=== PATIENT | male | born 1935 | race Caucasian/White ===

== ENCOUNTER 2019-11-12 02:53 | Emergency (ER) | payer OTHER ==
[~2019-11-12] VITALS: Ht 175.3 cm; Wt 81.6 kg
[2019-11-12 02:55] VITALS: BP_SYST 158
--- NOTE | 2019-11-12 02:55 | NUR ---
Placed in room 02 . Placed on custom home installer, blood pressure machine and pulse oximeter. To gown for exam. Side rails up. Report given to CAROL Schumacher
--- NOTE | 2019-11-12 03:00 | NUR ---
Note undone in EDM - 11/12/19 at 0318 by [email or web address] Patient brought in with daughter. Reports that patient called daughter at 0150 stating he fell when getting up to urinate and crawled to cell phone to call. 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 Patient's baseline is AAO x 4 and able to ambulate. In ED, patient having trouble transferring from wheelchair to bed. Patient's last known well time is yesterday afternoon. Denies any pain. No other complaints/injuries per patient or as noted.
--- NOTE | 2019-11-12 03:00 | NUR ---
Patient brought in with daughter. Reports that patient called daughter at 0150 stating he fell when getting up to urinate and crawled to cell phone to call. 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 Patient's baseline is AAO x 4 and able to ambulate. In ED, patient having trouble transferring from wheelchair to bed. Patient's last known well time is yesterday afternoon. Denies any pain. Report given to CAROL Schumacher
--- NOTE | 2019-11-12 03:05 | NUR ---
ER at bedside examining patient.
--- NOTE | 2019-11-12 03:10 | NUR ---
Pt taken to CT for CT scan with Licenced RN present
--- NOTE | 2019-11-12 03:20 | NUR ---
performing Peer to Peer consultation with stroke center.
--- NOTE | 2019-11-12 03:20 | NUR ---
Pt returned to room on [place]. No change in condition.
[2019-11-12 03:41] LABS: BASOPHILS % (AUTO) 0.5 % (0.0-2.0); EOSINOPHILS # (AUTO) 0.1 K/uL (0.0-0.4); EOSINOPHILS % (AUTO) 1.9 % (0.0-4.0); HEMATOCRIT 43.3 % (36-54); HEMOGLOBIN 14.6 g/dL (14.0-18.0); LYMPHOCYTES # (AUTO) 1.8 K/uL (1.0-5.5); LYMPHOCYTES % (AUTO) 23.7 % (20.5-51.5); MEAN CORPUSCULAR HEMOGLOBIN 32 pg (27-31); MEAN CORPUSCULAR HGB CONC 34 % (32-36); MEAN CORPUSCULAR VOLUME 96 fL (79.0-98.0); MONOCYTES # (AUTO) 0.6 K/uL (0.0-1.0); MONOCYTES % (AUTO) 7.6 % (1.7-9.3); NEUTROPHILS # (AUTO) 4.9 K/uL (1.8-7.7); NEUTROPHILS % (AUTO) 66.3 % (40.0-70.0); PLATELET COUNT (AUTO) 131 K/uL (130-430); RED BLOOD CELL COUNT(AUTO) 4.53 MIL/uL (4.2-6.2); RED CELL DISTRIBUTION WIDTH 13.8 % (9.0-15.0); WHITE BLOOD COUNT (AUTO) 7.4 K/uL (4.8-10.8)
--- NOTE | 2019-11-12 03:45 | NUR ---
Spoke with Calin at [facility], Stated that [facility] is 35 minutes ETA. Accepting Doctor is Dimitry Vega. Stated to call [phone] for report once crew is here to transport.
[2019-11-12 03:53] LABS: INR 2.1 (0.80-1.20); PROTHROMBIN TIME 20.6 SECS (9.5-12.5)
--- NOTE | 2019-11-12 03:58 | NUR ---
[facility] updated eta. approx 30 minutes.
[2019-11-12 04:03] LABS: ANION GAP 9 (5-15); CALCIUM 8.3 mg/dL (8.4-11.0); CHLORIDE 104 mmol/L (98-107); CREATININE 0.97 mg/dL (0.55-1.30); GLUCOSE 117 mg/dL (70-99); SODIUM SERUM 140 mmol/L (136-145); UREA NITROGEN, BLOOD 13 mg/dL (8-21)
[2019-11-12 04:08] VITALS: BP_SYST 134
--- NOTE | 2019-11-12 04:08 | NUR ---
Patient to be transferred to [facility]. Is being transferred due to higher level of care. Receiving facility has accepting physician and available space. ER physician has signed transfer form. Patient or responsible democrat has agreed to transfer and signed form. Patient belongings inventoried and will be sent with patient. Copy of nursing notes, lab reports, EKG, Physicians Orders and X-rays to be sent with patient. Report called to Charge Nurse at receiving facility. Receiving physician is Alfreda barnes ready to transfer patient
[2019-11-12 04:13] LABS: ALANINE AMINOTRANSFERASE 19 U/L (12-78); ALBUMIN 3.7 g/dL (3.4-4.8); ASPARTATE AMINOTRANSFERASE 23 U/L (10-37); TOTAL BILIRUBIN 0.8 mg/dL (0.0-1.0)
--- NOTE | 2019-11-12 04:18 | NUR ---
Pt Transported from [facility] [place] [facility] ALS unit 162
== END 2019-11-12 04:18 | disposition short-term general hospital (02) ==
LOC: SED 02:53
DX: I63.9 Cerebral infarction, unspecified (principal); Z86.73 Personal history of transient ischemic attack (TIA), and cerebral infarction without residual deficits; Z95.0 Presence of cardiac pacemaker
CPT/HCPCS: 36415; 70450-TC; 71045; 80053; 82962; 84484; 85025; 85610-TC; 85730-TC; 86886; 86900; 86901; 93005; 99285